=== PATIENT | female | born 1970 | race Caucasian/White ===

== ENCOUNTER 2022-12-28 17:28 | Emergency (ER) | payer OTHER, SELFPAY ==
[2022-12-28] MEDS ORDERED: Ketorolac Tromethamine 60 MG/2 ML VIAL ONE (18:18)
[2022-12-28] MEDS ORDERED: Morphine 4 MG/ML VIAL ONE (18:18)
[2022-12-28] MEDS ORDERED: Ondansetron ODT 4 MG TAB ONE (18:18)
== END 2022-12-28 18:45 | disposition home or self-care (01) ==
LOC: MADERS 17:28
DX: M54.6 Pain in thoracic spine (principal); F17.210 Nicotine dependence, cigarettes, uncomplicated
CPT/HCPCS: 96372; 99283; J1885; J2270; Q0162

== ENCOUNTER 2024-06-27 09:41 | Emergency (ER) | payer SELFPAY ==
[2024-06-27] MEDS ORDERED: Morphine 4 MG/ML VIAL ONE (09:44)
[2024-06-27] MEDS ORDERED: Ondansetron PF 4 MG/2 ML Vial ONE (09:44)
[2024-06-27] MEDS ORDERED: Ketamine 50 MG/ML (10ML VIAL) ONE (09:54)
== END 2024-06-27 11:46 | disposition home or self-care (01) ==
LOC: MADERS 09:41
DX: S82.852A Displaced trimalleolar fracture of left lower leg, initial encounter for closed fracture (principal); S93.05XA Dislocation of left ankle joint, initial encounter; I10 Essential (primary) hypertension; E03.9 Hypothyroidism, unspecified; F17.210 Nicotine dependence, cigarettes, uncomplicated; Z55.6 Problems related to health literacy; Z79.899 Other long term (current) drug therapy; W17.89XA Other fall from one level to another, initial encounter
CPT/HCPCS: 29515; 70450; 72125; 72128; 72131; 96374; 96375; J2272; J2405

== ENCOUNTER 2024-06-30 13:50 | Emergency (ER) | payer SELFPAY | END 2024-06-30 14:50 | disposition home or self-care (01) | LOC: MADERS 13:50 | DX: S90.31XA Contusion of right foot, initial encounter (principal); S82.852D Displaced trimalleolar fracture of left lower leg, subsequent encounter for closed fracture with routine healing; I10 Essential (primary) hypertension; F17.210 Nicotine dependence, cigarettes, uncomplicated; W11.XXXD Fall on and from ladder, subsequent encounter; Y93.39 Activity, other involving climbing, rappelling and jumping off | CPT/HCPCS: 99283 ==